=== PATIENT | male | born 1970 | race Caucasian/White ===

== ENCOUNTER → 2017-02-15 | Outpatient (CLI) | payer BC ==
[~2017-02-15] MED LIST: ISOVUE-370 76% 100ML VIAL (Q9967) As Ordered ONE
--- NOTE | 2017-02-15 14:52 | REP ---
Clinical: Pelvic and groin pain. Technique: Axial contrast enhanced images from the lung bases to the pubic symphysis using 100 ml Isovue 370 intravenous contrast material with precontrast images of the abdomen as well as coronal and sagittal re-formations. Findings: Lung bases are clear. Visualized heart and pericardium normal. Small hiatal hernia suggested at the gastroesophageal junction. Liver, spleen, pancreas, gallbladder, bilateral adrenal glands and kidneys are normal. The enteric system is without obstruction or acute inflammatory process. Normal terminal ileum and appendix identified in the right lower quadrant. Pelvis demonstrates normal sigmoid colon, bladder, and prostate/seminal vesicles. The inguinal canals are normal and without hernia. Surgical clip noted in the right daniel scrotum. No ascites. No free air. No intraperitoneal or retroperitoneal adenopathy. No mass lesion. Vasculature is normal. Musculoskeletal structures are intact. Impression: Small hiatal hernia at the gastroesophageal junction. Otherwise normal contrast enhanced CT of the abdomen and pelvis. Signed by Damion Gutiérrez MD 02/15/2017 02:42 P
== END ==
LOC: M RAD 10:55
PROVIDERS: ATTEND Nurse Practitioner Women's Health
DX: R10.30 Lower abdominal pain, unspecified (principal); I86.1 Scrotal varices